=== PATIENT | female | born 1975 | race Two or more races ===

== ENCOUNTER 2022-09-15 21:20 | Emergency (ER) | payer BC ==
[~2022-09-15] VITALS: Ht 162.6 cm; Wt 72.6 kg
[2022-09-15] MEDS ORDERED: KETOROLAC TROMETHAMINE INJ 60 MG/2 ML VIAL IM ONE ×2 (22:00→22:22)
--- NOTE | 2022-09-15 22:18 | NUR ---
PT RETURNED TO ER BED [address]
--- NOTE | 2022-09-15 22:19 | NUR ---
Iban AOx4, able to express her concerns. Latricia zarco she was practicing gynnastics with her partners when she was hurt. States she went to Urgent care and they did not see any fractures. Discussed plan of care, patient verbalized agreement.
[2022-09-15] MEDS ORDERED: IBUP-1955 PO (22:59)
[2022-09-16 01:43] VITALS: BP 122/73
== END 2022-09-15 23:30 | disposition home or self-care (01) ==
LOC: ER 21:26
DX: R07.81 Pleurodynia (principal)
CPT/HCPCS: 99285; 71250; 96372; 74176; J1885